=== PATIENT | female | born 1995 | race African-American/Black ===

== ENCOUNTER 2025-09-04 23:23 | Emergency (ER) | payer MEDICAID, OTHER ==
[~2025-09-04] VITALS: Ht 157.5 cm; Wt 96.0 kg
[2025-09-04 23:54] VITALS: BP 135/105; PULSE 104; TEMP 98.5
[2025-09-04 23:57] VITALS: RESP 18; O2SAT 98
[2025-09-04] MEDS: IPRATROPIUM BROM 0.5 MG/2.5ML INH SOL NEB ONE (23:57)
[2025-09-04] MEDS: ALBUTEROL SULF 2.5 MG/0.5ML(0.5%) NEB SOLN NEB ONE (23:57)
[2025-09-05] MEDS: ALBUTEROL SULF 2.5 MG/0.5ML(0.5%) NEB SOLN ONE (00:07)
[2025-09-05] MEDS: IPRATROPIUM BROM 0.5 MG/2.5ML INH SOL ONE (00:07)
[2025-09-05] MEDS ORDERED: AZIT-43 PO (00:31)
[2025-09-05] MEDS ORDERED: METH4PAK PO (00:31)
[2025-09-05] MEDS ORDERED: ALBU108A5 IN (00:31)
--- NOTE | 2025-09-05 00:31 | ED.PDOC ---
SOB-HPI HPI Comments Pt presents with cc of SOB x last night becoming progressively worse. Pt was at family's house with animals, which has caused similar symptoms in the past. Pt ran out of her inhaler at home. 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 Family History Family History: Unknown Social History Smoker: Non-Smoker Alcohol: Denies ETOH Use Drugs: Denies Drug Use Constitutional: denies: chills, diaphoresis, fatigue, fever, malaise, sweats, weakness, others EENTM: denies: blurred vision, double vision, ear bleeding, ear discharge, ear drainage, ear pain, ear ringing, eye pain, eye redness, hearing loss, mouth pain, mouth swelling, nasal discharge, nose bleeding, nose congestion, nose pain, photophobia, tearing, throat pain, throat swelling, voice changes, others Respiratory: reports: shortness of breath, wheezing; denies: cough, hemoptysis, orthopnea, SOB at rest, SOB with excertion, stridor, others Cardiovascular: denies: chest pain, dizzy spells, diaphoresis, Dyspnea on exertion, edema, irregular heart beat, left arm pain, lightheadedness, pal pitations, PND, syncope, others Gastrointestinal: denies: abdomen distended, abdominal pain, blood streaked bowels, constipated, diarrhea, dysphagia, difficulty swallowing, hematemesis, melena, nausea, poor appetite, poor fluid intake, rectal bleeding, rectal pain, vomiting, others Genitourinary: denies: abnormal vagina bleeding, burning, dyspareunia, dysuria, flank pain, frequency, hematuria, incontinence, pain, , vagina discharge, urgency, others Neurological: denies: dizziness, fainting, headache, left sided numbness, left sided weakness, numbness, paresthesia, pre-existing deficit, right sided numbness, right sided weakness, seizure, speech problems, tingling, tremors, weakness, others Musculoskeletal: denies: back pain, gout, joint pain, joint swelling, muscle pain, muscle stiffness, neck pain, others Integumetry: denies: bruises, change in color, change in hair/nails, dryness, laceration, lesions, lumps, rash, wounds, others Allergic/Immunocompromised: denies: Difficulty Healing, Frequent Infections, Hives, Itching, others Hematologic/Lymphatic: denies: anemia, blood clots, easy bleeding, easy b ruising, swollen glands, others Endocrine: denies: excessive hunger, excessive sweating, excessive thirst, excessive urination, flushing, intolerance to cold, intolerance to heat, unexplained weight gain, unexplained weight loss, others Psychiatric: denies: anxiety, bipolar disorder, depression, hopeless, panic disorder, schizophrenia, sleepless, suicidal, others Physical Exam General Appearance: No Apparent Distress, Normal HEENT: Normal ENT Inspection, Pharynx Normal, TMs Normal Neck: Full Range of Motion, Non-Tender Respiratory: Chest Non-Tender, No Accessory Muscle Use, No Respiratory Distress, Wheezing Cardiovascular: No Edema, No JVD, No Murmur, No Gallop, Normal Peripheral Pulses, Regular Rate/Rhythm Breast Exam: Deferred Gastrointestinal: Non Tender, Soft Genitalia: Deferred Pelvic: Deferred Rectal: Deferred Extremities: Normal capillary refill, Normal range of motion, No pedal edema Musculoskeletal : Apperance: Normal Neurologic: Alert, No Motor Deficits, Normal Affect, Normal Mood, No Sensory Deficits Cerebellar Function: Normal Reflexes: NOT DONE Skin: Dry, Normal Color, Warm Lymphatic: No Adenopathy Was a procedure done? Was a procedure done?: No Differential Dx Differential Diagnosis: Asthma, Bronchitis, Pneumonia, Pneumothorax X-Ray, Labs, Meds, VS Vital Signs Date Time Temp Pulse Resp B/P (MAP) Pulse Ox O2 Delivery O2 Flow Rate FiO2 09/04/25 23:57 18 98 Room Air* 0 21 09/04/25 23:54 98.5 104 19 135/105 (115) 99 98.5 09/04/25 23:54 104 19 99 Room Air 09/04/25 23:24 97.5 115 20 144/96 99 97.5 Current Medications Medications (Trade) Dose Ordered Sig/Kevin Route Start Time Stop Time Status Last Admin Albuterol (Ventolin Medneb) 2.5 mg ONCE ONCE NEB 09/04/25 23:30 09/04/25 23:31 DC 09/04/25 23:57 Ipratropium [place] (Atrovent Medneb) 0.5 mg ONCE ONCE NEB 09/04/25 23:30 09/04/25 23:31 DC 09/04/25 23:57 Dexamethasone Sodium Phosphate (Decadron Injection) 10 mg ONCE ONCE IM 09/04/25 23:45 09/04/25 23:46 DC 09/04/25 23:51 X-Ray, Labs, Meds, VS Comment Patient given breathing treatment Atrovent and albuterol and Decadron 10 mg IM she notes moderate improvement requesting discharge at this time. Likely bronchitis script trial of albuterol Medrol Dosepak and azithromycin advised take medication as prescribed side effects discussed. Advised to follow up with her PCP in 2-3 days as necessary. ER return precautions given patient indicates understanding and agrees with discharge plan of care. Time of 1ST Reevaluation: 23:29 Reevaluation 1ST: Unchanged Time of 2ND Reevaluation: 00:29 Reevaluation 2ND: Improved Patient Education/Counseling: Diagnosis, Treatment, Need For Follow Up Family Education/Counseling: No Family Present SEPSIS Sepsis Screen Date sepsis recognized/suspect: Sep 04, 2025 Time Sepsis recognized/suspect: 2325 Recent Procedure: No On Antibiotic Therapy: No Respiratory Rate >20: No Heart Rate >90: Yes Temp<36 C (96.8 F) or >38.3 C: No SBP <90 or MAP <65 mmHG: No New Acute Mental Status Change: No Is the patient on CPAP, BIPAP,: No Vital Signs Date Time Temp Pulse Resp B/P (MAP) Pulse Ox O2 Delivery O2 Flow Rate FiO2 09/04/25 23:57 18 98 Room Air* 0 21 09/04/25 23:54 98.5 104 19 135/105 (115) 99 98.5 09/04/25 23:54 104 19 99 Room Air 09/04/25 23:24 97.5 115 20 144/96 99 97.5 Medications Medications Dose Ordered Sig/Kevin Route Start Time Stop Time Status Last Admin Dose Admin Albuterol 2.5 mg ONCE ONCE NEB 09/04/25 23:30 09/04/25 23:31 DC 09/04/25 23:57 Dexamethasone Sodium Phosphate 10 mg ONCE ONCE IM 09/04/25 23:45 09/04/25 23:46 DC 09/04/25 23:51 Ipratropium [place] 0.5 mg ONCE ONCE NEB 09/04/25 23:30 11/28/25 23:31 DC 09/04/25 23:57 Departure 1 Departure Time of Disposition: 00:28 Impression: Primary Impression: Bronchitis Disposition: 01 HOME / SELF CARE / HOMELESS Condition: Stable e-Prescriptions Albuterol Sulfate (Albuterol Sulfate Hfa) 108 Mcg/Act Aer 1 PUFF IN Q4HP PRN for 14 Days, #1 INHALER 1-2 puffs every 4-6 hours as needed for wheezing shortness of breath Prov: OSMAR OROURKEP 09/05/25 Methylprednisolone (Medrol Dosepak) 4 Mg Nazario 4 MG PO UD for 6 Days, #21 TAB UAD Prov: OSMAR [facility]OURKE [facility] 09/05/25 Azithromycin (Azithromycin) 250 Mg Tab 250 MG PO DAILY MDD 500 for 5 Days, #6 TAB 0 Refills 2 TABLETS ORALLY ON DAY ONE, THEN 1 TABLET ORALLY DAILY FOR 4 DAYS Prov: OSMAR OROURKE [facility] 09/05/25 Discharged With: Self Critical Care Note Critical Care Time?: No Stability Stability form required: No Heart Score Heart Score: Heart Score Response (Comments) Value History N/A 0 EKG N/A 0 Age <45 0 Risk Factors N/A 0 Troponin N/A 0 Total 0 OSMAR OROURKE [facility] Sep 05, 2025 00:31
== END 2025-09-05 00:38 | disposition home or self-care (01) ==
LOC: ER 23:23
DX: J40 Bronchitis, not specified as acute or chronic (principal)
CPT/HCPCS: 94640; 96372; 99283; J1100